=== PATIENT | male | born 1995 | race Two or more races ===

== ENCOUNTER 2022-01-24 03:08 | Emergency (ER) | payer SELFPAY ==
[~2022-01-24] VITALS: Ht 167.6 cm; Wt 81.6 kg
[2022-01-24 06:20] VITALS: BP 124/84
== END 2022-01-24 06:29 | disposition left against medical advice (07) ==
LOC: ER 03:08
DX: R51.9 Headache, unspecified (principal); M54.2 Cervicalgia; M25.511 Pain in right shoulder; Z53.21 Procedure and treatment not carried out due to patient leaving prior to being seen by health care provider